=== PATIENT | female | born 1985 | race Caucasian/White ===

== ENCOUNTER 2018-03-25 11:28 | Emergency (ER) | payer MEDICAID ==
[~2018-03-25] VITALS: Ht 157.5 cm; Wt 65.0 kg
[~2018-03-25 11:28] MED LIST: CYCL5TAB11 PO; FAMO-128 PO; HYDR-565 PO; HYDR-569 PO; IBUP-1051 PO; IBUP-1573 PO; IBUP-1985 PO; MECL25TA3 PO; NORCO10T PO; OMEP-84 PO; ONDA4TAB6 PO; ONDA8TAB9 PO
[2018-03-25 12:01] VITALS: BP 135/73
[2018-03-25] MEDS ORDERED: IBUP-1984 PO (12:56)
[2018-03-25] MEDS ORDERED: PENI500T2 PO (12:56)
== END 2018-03-25 13:08 | disposition home or self-care (01) ==
LOC: ER 11:29
DX: K08.89 Other specified disorders of teeth and supporting structures (principal); R22.0 Localized swelling, mass and lump, head; G89.29 Other chronic pain; F12.90 Cannabis use, unspecified, uncomplicated; Z98.51 Tubal ligation status; Z88.1 Allergy status to other antibiotic agents; Z88.5 Allergy status to narcotic agent; Z88.8 Allergy status to other drugs, medicaments and biological substances; Z79.899 Other long term (current) drug therapy
CPT/HCPCS: 99283

== ENCOUNTER 2019-05-04 09:58 | Emergency (ER) | payer MEDICAID ==
[~2019-05-04] VITALS: Ht 154.9 cm; Wt 66.6 kg
[~2019-05-04 09:58] MED LIST changes: +HYDR-4353 PO; +HYDR-4383 PO; -HYDR-565 PO; -HYDR-569 PO
[2019-05-04 10:07] VITALS: BP 125/78
[2019-05-04] MEDS ORDERED: PENI500T2 PO (11:55)
== END 2019-05-04 12:10 | disposition home or self-care (01) ==
LOC: ER 09:58
DX: K04.7 Periapical abscess without sinus (principal); G89.29 Other chronic pain; F12.90 Cannabis use, unspecified, uncomplicated; Z98.51 Tubal ligation status; Z88.1 Allergy status to other antibiotic agents; Z88.5 Allergy status to narcotic agent; Z88.8 Allergy status to other drugs, medicaments and biological substances; Z79.2 Long term (current) use of antibiotics; Z79.899 Other long term (current) drug therapy
CPT/HCPCS: 99283

== ENCOUNTER 2019-08-10 11:22 | Emergency (ER) | payer MEDICAID ==
[~2019-08-10] VITALS: Ht 154.9 cm; Wt 68.0 kg
[2019-08-10 12:03] LABS: BASOPHILS # (AUTO) 0.1 X10'3 (0-0.2); BASOPHILS % (AUTO) 0.7 % (0-1); EOSINOPHILS # (AUTO) 0.1 X10'3 (0-0.9); EOSINOPHILS % (AUTO) 1.4 % (0-6); HEMATOCRIT 37.5 % (35.0-45.0); HEMOGLOBIN 12.9 g/dl (12.0-16.0); LYMPHOCYTES # (AUTO) 4.2 X10'3 (1.1-4.8); LYMPHOCYTES % (AUTO) 41.3 % (21-51); MEAN CORPUSCULAR HEMOGLOBIN 30.1 PG (27.0-31.0); MEAN CORPUSCULAR HGB CONC 34.2 g/dL (33.0-36.5); MEAN CORPUSCULAR VOLUME 87.9 FL (78-98); MEAN PLATELET VOLUME 6.8 FL (7.4-10.4); MONOCYTES # (AUTO) 0.6 X10'3 (0-0.9); MONOCYTES % (AUTO) 6.3 % (2-12); NEUTROPHILS # (AUTO) 5.1 X10'3 (1.8-7.7); NEUTROPHILS % (AUTO) 50.3 % (42-75); PLATELET COUNT 413 X10'3 (140-440); RED BLOOD COUNT 4.27 X10'6 (4.20-5.60); WHITE BLOOD COUNT 10.1 X10'3 (4.5-11.0)
[2019-08-10 12:18] LABS: ALANINE AMINOTRANSFERASE 20 U/L (12-78); ALBUMIN/GLOBULIN RATIO 1.1 (1.1-1.5); ALKALINE PHOSPHATASE 83 IU/L (46-116); ANION GAP 7 (8-16); ASPARTATE AMINO TRANSFERASE 15 U/L (10-37); BILIRUBIN,TOTAL 0.3 MG/DL (0.1-1.0); BLOOD UREA NITROGEN 14 MG/DL (7-18); BUN/CREATININE RATIO 13.7 (6.6-38.0); CHLORIDE 105 MMOL/L (99-107); CREATININE 1.02 MG/DL (0.40-0.90); GLUCOSE 68 MG/DL (70-104); POTASSIUM 3.7 MMOL/L (3.5-5.1); SODIUM 144 MMOL/L (135-145); TOTAL CARBON DIOXIDE 31.9 MMOL/L (24-32); TOTAL PROTEIN 7.7 G/DL (6.4-8.2); eGFR 63 ML/MIN
[2019-08-10 12:38] LABS: CLARITY,URINE CLOUDY (Clear); COLOR,URINE YELLOW (Yellow); GLUCOSE, URINE NEGATIVE (Neg); KETONES,URINE NEGATIVE (Neg); LEUKOCYTE ESTERASE ,URINE NEGATIVE (Neg); NITRITES, URINE NEGATIVE (Neg); OCCULT BLOOD,URINE NEGATIVE (Neg); PH,URINE 5.5 (4.8-8.0); PROTEIN,URINE NEGATIVE (Neg); UROBILINOGEN,URINE 0.2 E.U/dL (0.2-1.0)
[2019-08-10] MEDS ORDERED: ibuprofen tablet 400 MG TABLET PO ONE (12:40)
[2019-08-10] MEDS ORDERED: meclizine 12.5mg tablet PO ONE (12:40)
[2019-08-10] MEDS ORDERED: ondansetron 4mg rapidly disintigrating tab PO ONE (12:40)
[2019-08-10 12:41] LABS: UA COLLECTION TYPE CLN CATCH MIDSTREAM
[2019-08-10 12:42] LABS: URINE HCG NEGATIVE (NEG)
[2019-08-10 12:45] LABS: CAL OXALATE CRYSTALS 4+ /HPF (NEGATIVE); MUCUS STRANDS MANY /LPF (Neg); SQUAMOUS EPITHELIAL CELL,UR MANY /LPF (FEW)
[2019-08-10 12:46] LABS: BACTERIA,URINE 2+ /HPF (Neg); RBC,URINE 0-2 /HPF (0-2); WBC,URINE 0-4 /HPF (0-4)
[2019-08-10] MEDS ORDERED: MECL-184 PO (13:35)
[2019-08-10 13:47] VITALS: BP 106/56
== END 2019-08-10 13:48 | disposition home or self-care (01) ==
LOC: ER 11:24
DX: H81.10 Benign paroxysmal vertigo, unspecified ear (principal); R07.81 Pleurodynia; G89.29 Other chronic pain; F12.90 Cannabis use, unspecified, uncomplicated; Z98.51 Tubal ligation status; Z88.1 Allergy status to other antibiotic agents; Z88.5 Allergy status to narcotic agent; Z88.8 Allergy status to other drugs, medicaments and biological substances; Z79.899 Other long term (current) drug therapy
CPT/HCPCS: 36415; 71045; 76700; 80053; 81001; 81025; 84484; 85025; 93005; 99284; J8597

== ENCOUNTER 2019-12-11 21:48 | Emergency (ER) | payer MEDICAID ==
[~2019-12-11] VITALS: Ht 157.5 cm; Wt 68.1 kg
[~2019-12-11 21:48] MED LIST changes: +MECL-184 PO
[2019-12-11] MEDS ORDERED: HYDROcodone/acetaminophen 5mg/325mg tablet PO ONE (22:40)
[2019-12-11] MEDS ORDERED: CefTRIAXone 1000mg IM Kit (w/lidocaine diluent) IM ONE (22:40)
[2019-12-11] MEDS ORDERED: DOXY100C76 PO (22:46)
[2019-12-11] MEDS ORDERED: CEPH250T PO (22:46)
[2019-12-11] MEDS ORDERED: HYDR-3965 PO (22:46)
[2019-12-11 23:10] VITALS: BP 126/90
== END 2019-12-11 23:05 | disposition home or self-care (01) ==
LOC: ER 21:49
DX: L03.115 Cellulitis of right lower limb (principal); M25.474 Effusion, right foot; M25.471 Effusion, right ankle; G89.29 Other chronic pain; F12.90 Cannabis use, unspecified, uncomplicated; Z98.51 Tubal ligation status; Z88.1 Allergy status to other antibiotic agents; Z88.5 Allergy status to narcotic agent; Z88.8 Allergy status to other drugs, medicaments and biological substances; Z79.2 Long term (current) use of antibiotics; Z79.899 Other long term (current) drug therapy
CPT/HCPCS: 96372; 99283; J0696

== ENCOUNTER 2019-12-12 16:52 | Emergency (ER) | payer MEDICAID ==
[~2019-12-12] VITALS: Ht 157.5 cm; Wt 65.0 kg
[~2019-12-12 16:52] MED LIST changes: +CEPH250T PO; +DOXY100C76 PO; +HYDR-3965 PO
[2019-12-12 17:05] VITALS: BP 204/169
[2019-12-12] MEDS ORDERED: HYDROcodone/acetaminophen 10/325mg tab PO ONE (17:35)
[2019-12-12] MEDS ORDERED: CefTRIAXone 1000mg IM Kit (w/lidocaine diluent) IM ONE (17:35)
== END 2019-12-12 17:53 | disposition home or self-care (01) ==
LOC: ER 16:53
DX: S80.821A Blister (nonthermal), right lower leg, initial encounter (principal); L03.115 Cellulitis of right lower limb; G89.29 Other chronic pain; F12.90 Cannabis use, unspecified, uncomplicated; Z98.51 Tubal ligation status; Z88.1 Allergy status to other antibiotic agents; Z88.5 Allergy status to narcotic agent; Z79.899 Other long term (current) drug therapy; X58.XXXA Exposure to other specified factors, initial encounter; Y93.89 Activity, other specified; Y92.89 Other specified places as the place of occurrence of the external cause; Y99.8 Other external cause status
CPT/HCPCS: 96372; 99283; J0696

== ENCOUNTER 2020-05-17 19:34 | Emergency (ER) | payer MEDICAID ==
[~2020-05-17] VITALS: Ht 157.5 cm; Wt 68.2 kg
[~2020-05-17 19:34] MED LIST changes: -CEPH250T PO; -DOXY100C76 PO; -HYDR-3965 PO
[2020-05-17 20:19] LABS: BASOPHILS # (AUTO) 0.1 X10'3 (0-0.2); BASOPHILS % (AUTO) 0.6 % (0-1); EOSINOPHILS # (AUTO) 0.3 X10'3 (0-0.9); EOSINOPHILS % (AUTO) 2.2 % (0-6); HEMATOCRIT 36.9 % (35.0-45.0); HEMOGLOBIN 12.6 g/dl (12.0-16.0); LYMPHOCYTES # (AUTO) 4.3 X10'3 (1.1-4.8); LYMPHOCYTES % (AUTO) 37.1 % (21-51); MEAN CORPUSCULAR HEMOGLOBIN 29.9 PG (27.0-31.0); MEAN CORPUSCULAR HGB CONC 34.1 g/dL (33.0-36.5); MEAN CORPUSCULAR VOLUME 87.4 FL (78-98); MEAN PLATELET VOLUME 7.7 FL (7.4-10.4); MONOCYTES # (AUTO) 0.5 X10'3 (0-0.9); MONOCYTES % (AUTO) 4.6 % (2-12); NEUTROPHILS # (AUTO) 6.5 X10'3 (1.8-7.7); NEUTROPHILS % (AUTO) 55.5 % (42-75); PLATELET COUNT 362 X10'3 (140-440); RED BLOOD COUNT 4.22 X10'6 (4.20-5.60); RED CELL DISTRIBUTION WIDTH 13.3 % (11.5-14.5); WHITE BLOOD COUNT 11.6 X10'3 (4.5-11.0)
[2020-05-17 20:43] LABS: ALANINE AMINOTRANSFERASE 16 U/L (12-78); ALBUMIN 3.6 G/DL (3.4-5.0); ALBUMIN/GLOBULIN RATIO 0.9 (1.1-1.5); ALKALINE PHOSPHATASE 95 IU/L (46-116); ANION GAP 10 (8-16); ASPARTATE AMINO TRANSFERASE 12 U/L (10-37); BILIRUBIN,TOTAL 0.2 MG/DL (0.1-1.0); BLOOD UREA NITROGEN 14 MG/DL (7-18); BUN/CREATININE RATIO 15.1 (6.6-38.0); CALCIUM 8.9 MG/DL (8.5-10.1); CHLORIDE 102 MMOL/L (99-107); CREATININE 0.93 MG/DL (0.40-0.90); GLUCOSE 137 MG/DL (70-104); SODIUM 138 MMOL/L (135-145); TOTAL CARBON DIOXIDE 26.4 MMOL/L (24-32); TOTAL PROTEIN 7.5 G/DL (6.4-8.2); eGFR 69 ML/MIN
[2020-05-17] MEDS ORDERED: potassium Cl 20 mEq SR tablet PO STA (22:08)
[2020-05-17] MEDS ORDERED: normal saline 1000ML IV soln IVB ONE (22:10)
[2020-05-17 23:04] LABS: D-DIMER 0.35 MG/L FEU (0-0.50)
[2020-05-17 23:13] VITALS: BP 118/77
== END 2020-05-18 00:03 | disposition home or self-care (01) ==
LOC: ER 19:35
DX: R55 Syncope and collapse (principal); R07.9 Chest pain, unspecified; G89.29 Other chronic pain; M54.9 Dorsalgia, unspecified; F17.200 Nicotine dependence, unspecified, uncomplicated; F12.10 Cannabis abuse, uncomplicated; Z88.1 Allergy status to other antibiotic agents; Z88.5 Allergy status to narcotic agent; Z88.8 Allergy status to other drugs, medicaments and biological substances; Z79.899 Other long term (current) drug therapy; Z98.51 Tubal ligation status
CPT/HCPCS: 36415; 71045; 80053; 83880; 84484; 85025; 85379; 93005; 96360; 99285; J7030

== ENCOUNTER 2020-12-16 10:53 | Emergency (ER) | payer MEDICAID ==
[~2020-12-16] VITALS: Ht 154.9 cm; Wt 72.7 kg
[~2020-12-16 10:53] MED LIST changes: -MECL-184 PO; +MECL-231 PO
--- NOTE | 2020-12-16 11:25 | NUR ---
PATIENT STATES THAT SHE HAS HAD COUGH SINCE WEDNESDAY WITH COUGH, FEVER, BODY ACHES, NAUSEA, DIARRHEA, AND CHEST PRESSURE WHEN SHE TAKES A DEEP BREATH. STATES SHE WAS AROUND A CO-WORKER 2 WEEKS AGO THAT TESTED POSITIVE FOR COVID. NO HISTORY OF COVID VACCINE.
[2020-12-16] MEDS ORDERED: ALBU6.7H9 INH (12:38)
[2020-12-16] MEDS ORDERED: PRED20TA PO (12:38)
[2020-12-16 12:45] VITALS: BP 117/87
== END 2020-12-16 12:47 | disposition home or self-care (01) ==
LOC: ER 10:53
DX: J06.9 Acute upper respiratory infection, unspecified (principal); Z20.822 Contact with and (suspected) exposure to COVID-19; R05 Cough; R50.9 Fever, unspecified; R07.89 Other chest pain; R06.02 Shortness of breath; J45.909 Unspecified asthma, uncomplicated; G89.29 Other chronic pain; F12.90 Cannabis use, unspecified, uncomplicated; Z98.51 Tubal ligation status; Z88.1 Allergy status to other antibiotic agents; Z88.5 Allergy status to narcotic agent; Z88.8 Allergy status to other drugs, medicaments and biological substances; Z79.899 Other long term (current) drug therapy
CPT/HCPCS: 71045; 87635; 99284; C9803

== ENCOUNTER 2023-03-16 10:46 | Emergency (ER) | payer MEDICAID ==
[~2023-03-16] VITALS: Ht 154.9 cm; Wt 70.0 kg
[~2023-03-16 10:46] MED LIST changes: +ALBU6.7H14 INH
[2023-03-16 10:52] VITALS: BP 159/103; PULSE 101; RESP 18; TEMP 97.8; O2SAT 98
[2023-03-16] MEDS ORDERED: CEPH-585 PO (13:41)
[2023-03-16] MEDS ORDERED: SULF1TAB49 PO (13:41)
== END 2023-03-16 13:57 | disposition home or self-care (01) ==
LOC: ER 10:46
DX: J34.0 Abscess, furuncle and carbuncle of nose (principal); J45.909 Unspecified asthma, uncomplicated; G89.29 Other chronic pain; F12.90 Cannabis use, unspecified, uncomplicated; Z98.51 Tubal ligation status; Z79.899 Other long term (current) drug therapy; Z88.1 Allergy status to other antibiotic agents; Z88.8 Allergy status to other drugs, medicaments and biological substances
CPT/HCPCS: 99284

== ENCOUNTER 2023-07-30 11:59 | Emergency (ER) | payer MEDICAID ==
[~2023-07-30] VITALS: Ht 154.9 cm; Wt 64.5 kg
[~2023-07-30 11:59] MED LIST changes: +CEPH-585 PO
[2023-07-30] MEDS ORDERED: AMOX-117 PO (14:46)
[2023-07-30] MEDS ORDERED: METH4TAB81 PO (14:46)
[2023-07-30 14:55] VITALS: BP 101/71; PULSE 100; TEMP 99; O2SAT 95
[2023-07-30 14:58] VITALS: RESP 17
== END 2023-07-30 15:01 | disposition home or self-care (01) ==
LOC: ER 11:59
DX: J20.9 Acute bronchitis, unspecified (principal); J45.901 Unspecified asthma with (acute) exacerbation; F12.90 Cannabis use, unspecified, uncomplicated; Z20.822 Contact with and (suspected) exposure to COVID-19
CPT/HCPCS: 36415; 71045; 87502; 87503; 87811; 99284